=== PATIENT | male | born 1985 | race Caucasian/White ===

== ENCOUNTER 2018-03-29 22:57 | Inpatient (IN) | payer MEDICAID ==
[~2018-03-29] VITALS: Ht 172.7 cm; Wt 112.9 kg
[2018-03-29] MEDS ORDERED: LORazepam 2 MG TABLET PO PRN (23:15)
[2018-03-29] MEDS ORDERED: HALOPERIDOL 5 MG TABLET PO PRN (23:15)
[2018-03-29] MEDS ORDERED: ZOLPIDEM TARTRATE 10 MG TABLET PO PRN (23:15)
[2018-03-29 23:34] VITALS: BP 134/76
[2018-03-30 00:42] VITALS: BP 139/89
[2018-03-30] MEDS ORDERED: PETROLATUM,WHITE 71 GM JELLY TP PRN (05:30)
[2018-03-30] MEDS ORDERED: CloNIDine HCL 0.1 MG TABLET PO PRN (05:30)
[2018-03-30] MEDS ORDERED: IBUPROFEN 400 MG TABLET PO PRN (05:30)
[2018-03-30] MEDS ORDERED: ALBUTEROL SULFATE HFA 90 MCG/PUFF 8 GM INHALER IH PRN (05:30)
[2018-03-30] MEDS ORDERED: LOPERAMIDE HCL 2 MG CAPSULE PO PRN (05:30)
[2018-03-30] MEDS ORDERED: DOCUSATE SODIUM 100 MG CAPSULE PO PRN (05:30)
[2018-03-30] MEDS ORDERED: PERMETHRIN 5% 60 GM CREAM TP ONE (05:30)
[2018-03-30] MEDS ORDERED: ACETAMINOPHEN 325 MG TABLET PO PRN (05:30)
[2018-03-30] MEDS ORDERED: MAGNESIUM HYDROXIDE SUSPENSION 30 ML UDCUP PO PRN (05:30)
[2018-03-30] MEDS ORDERED: ONDANSETRON HCL 4 MG TABLET PO PRN (05:30)
[2018-03-30] MEDS ORDERED: GuaiFENesin/D-METHORPHAN [SUGAR-FREE] 200-20MG/10 ML SYRUP UDCUP PO PRN (05:30)
[2018-03-30] MEDS ORDERED: MAG HYDROX/AL HYDROX/SIMETH ES 30 ML SUSPENSION UDCUP PO PRN (05:30)
[2018-03-30 08:17] VITALS: BP 123/70
[2018-03-30 09:29] LABS: ALANINE AMINOTRANSFERASE 110 U/L (12-78); ALBUMIN 3.1 g/dL (3.4-5.0); ALKALINE PHOSPHATASE 88 U/L (46-116); ANION GAP 6 mmol/L (8-16); ASPARTATE AMINOTRANSFERASE 181 U/L (15-37); BILIRUBIN,TOTAL 0.7 mg/dL (0.1-1.0); CALCIUM, TOTAL 8.1 mg/dL (8.8-10.5); CARBON DIOXIDE 28 mmol/L (22-29); CHLORIDE 101 mmol/L (98-107); CHOL/HDL RATIO 4.3 (4.2-7.3); CHOLESTEROL 155 mg/dL (131-200); FREE T4 (FREE THYROXINE) 1.32 ng/dL (0.76-1.46); GLOMERULAR FILTR. RATE CALC > 60 mL/min (>60); GLUCOSE,RANDOM 86 mg/dL (70-110); HDL CHOLESTEROL 36 mg/dL (40-60); LDL CHOL (CALC.) 100 mg/dL (0-130); POTASSIUM 3.3 mmol/L (3.5-5.1); SODIUM SERUM 135 mmol/L (136-145); THYROID STIMULATING HORMONE 1.16 uIU/mL (0.36-3.74); TOTAL PROTEIN, SERUM 6.7 g/dL (6.4-8.2); TRIGLYCERIDES 97 mg/dL (15-150)
[2018-03-30 09:34] LABS: UREA NITROGEN, BLOOD 15 mg/dL (7-18)
[2018-03-30] MEDS: NICOTINE 21 MG/24 HOUR PATCH TD SCH (09:39)
[2018-03-30 09:40] LABS: BASOPHILS % (AUTO) 0.4 % (0.0-2.0); EOSINOPHILS % (AUTO) 3.3 % (1.0-6.0); HEMATOCRIT 42.6 % (41-53); HEMOGLOBIN 14.6 g/dL (13.5-17.5); LYMPHOCYTES % (AUTO) 19.1 % (22.0-44.0); MEAN CORPUSCULAR HEMOGLOBIN 31.3 pg (26.0-34.0); MEAN CORPUSCULAR HGB CONC 34.4 G/dL (31.0-37.0); MEAN CORPUSCULAR VOLUME 91 fL (80-100); MONOCYTES # (AUTO) 0.4 K/uL (0.1-1.0); MONOCYTES % (AUTO) 8.7 % (2.0-9.0); NEUTROPHILS # (AUTO) 3.5 K/uL (1.8-7.7); NEUTROPHILS % (AUTO) 68.5 % (40.0-70.0); PLATELET COUNT (AUTO) 198 K/uL (150-450); RED BLOOD CELL COUNT(AUTO) 4.66 MIL/uL (4.50-5.90); RED CELL DISTRIBUTION WIDTH 14.8 % (11.5-14.5)
[2018-03-30 09:55] LABS: HEMOGLOBIN A1C 5.4 % (4.5-6.2)
[2018-03-30] MEDS ORDERED: POTASSIUM CHLORIDE 20 MEQ ER TABLET PO ONE (12:45)
[2018-03-30] MEDS: OLANZapine 10 MG TABLET PO SCH (16:09)
[2018-03-30] MEDS: CEPHALEXIN MONOHYDRATE 500 MG CAPSULE PO SCH ×2 (17:04→20:59)
[2018-03-30 17:49] VITALS: BP 116/83
[2018-03-31 02:43] VITALS: BP 120/81
[2018-03-31 08:17] VITALS: BP 130/59
[2018-03-31 08:51] LABS: HEMOGLOBIN A1C 5.3 % (4.5-6.2)
[2018-03-31] MEDS: FLUoxetine HCL 20 MG CAPSULE PO SCH (09:14)
[2018-03-31] MEDS: NICOTINE 21 MG/24 HOUR PATCH TD SCH (09:15)
[2018-03-31] MEDS: OLANZapine 10 MG TABLET PO SCH ×2 (09:15→16:10)
[2018-03-31] MEDS: CEPHALEXIN MONOHYDRATE 500 MG CAPSULE PO SCH ×4 (09:15→20:23)
[2018-03-31 09:23] LABS: ALANINE AMINOTRANSFERASE 96 U/L (12-78); ALBUMIN 2.9 g/dL (3.4-5.0); ALKALINE PHOSPHATASE 90 U/L (46-116); ANION GAP 5 mmol/L (8-16); ASPARTATE AMINOTRANSFERASE 95 U/L (15-37); BILIRUBIN,TOTAL 0.4 mg/dL (0.1-1.0); CALCIUM, TOTAL 8.7 mg/dL (8.8-10.5); CARBON DIOXIDE 29 mmol/L (22-29); CHLORIDE 104 mmol/L (98-107); CHOL/HDL RATIO 5.2 (4.2-7.3); CHOLESTEROL 167 mg/dL (131-200); FREE T4 (FREE THYROXINE) 1.21 ng/dL (0.76-1.46); GLOMERULAR FILTR. RATE CALC > 60 mL/min (>60); GLUCOSE,RANDOM 99 mg/dL (70-110); HDL CHOLESTEROL 32 mg/dL (40-60); LDL CHOL (CALC.) 110 mg/dL (0-130); POTASSIUM 4.1 mmol/L (3.5-5.1); SODIUM SERUM 138 mmol/L (136-145); THYROID STIMULATING HORMONE 1.03 uIU/mL (0.36-3.74); TOTAL PROTEIN, SERUM 6.6 g/dL (6.4-8.2); TRIGLYCERIDES 126 mg/dL (15-150); UREA NITROGEN, BLOOD 14 mg/dL (7-18)
[2018-03-31 09:37] LABS: BASOPHILS % (AUTO) 0.9 % (0.0-2.0); EOSINOPHILS % (AUTO) 5.9 % (1.0-6.0); HEMATOCRIT 42.9 % (41-53); HEMOGLOBIN 14.8 g/dL (13.5-17.5); LYMPHOCYTES # (AUTO) 1.1 K/uL (1.0-4.8); MEAN CORPUSCULAR HEMOGLOBIN 31.4 pg (26.0-34.0); MEAN CORPUSCULAR HGB CONC 34.5 G/dL (31.0-37.0); MEAN CORPUSCULAR VOLUME 91 fL (80-100); MONOCYTES # (AUTO) 0.4 K/uL (0.1-1.0); MONOCYTES % (AUTO) 9.1 % (2.0-9.0); NEUTROPHILS # (AUTO) 2.4 K/uL (1.8-7.7); NEUTROPHILS % (AUTO) 57.1 % (40.0-70.0); PLATELET COUNT (AUTO) 208 K/uL (150-450); RED BLOOD CELL COUNT(AUTO) 4.72 MIL/uL (4.50-5.90); RED CELL DISTRIBUTION WIDTH 14.8 % (11.5-14.5)
[2018-03-31 16:14] VITALS: BP 101/60
[2018-04-01 05:06] VITALS: BP 110/68
[2018-04-01] MEDS: NICOTINE 21 MG/24 HOUR PATCH TD SCH (09:00)
[2018-04-01 09:02] VITALS: BP 139/71
[2018-04-01] MEDS: CEPHALEXIN MONOHYDRATE 500 MG CAPSULE PO SCH ×4 (09:14→20:15)
[2018-04-01] MEDS: FLUoxetine HCL 20 MG CAPSULE PO SCH (09:14)
[2018-04-01] MEDS: OLANZapine 10 MG TABLET PO SCH ×2 (09:14→16:16)
[2018-04-01 16:40] VITALS: BP 116/86
[2018-04-02 03:28] VITALS: BP 120/81
[2018-04-02] MEDS: FLUoxetine HCL 20 MG CAPSULE PO SCH (08:02)
[2018-04-02] MEDS: CEPHALEXIN MONOHYDRATE 500 MG CAPSULE PO SCH ×4 (08:04→20:31)
[2018-04-02 08:05] VITALS: BP 114/71
[2018-04-02] MEDS: OLANZapine 10 MG TABLET PO SCH (09:29)
[2018-04-02] MEDS: NICOTINE 21 MG/24 HOUR PATCH TD SCH (09:29)
[2018-04-02 16:34] VITALS: BP 116/61
[2018-04-02] MEDS: OLANZapine 7.5 MG TABLET PO SCH (16:45)
[2018-04-03 05:05] VITALS: BP 120/81
[2018-04-03 08:29] VITALS: BP 107/72
[2018-04-03] MEDS: OLANZapine 7.5 MG TABLET PO SCH (08:43)
[2018-04-03] MEDS: NICOTINE 21 MG/24 HOUR PATCH TD SCH (08:44)
[2018-04-03] MEDS: FLUoxetine HCL 20 MG CAPSULE PO SCH (09:04)
[2018-04-03] MEDS: CEPHALEXIN MONOHYDRATE 500 MG CAPSULE PO SCH ×2 (09:04→12:18)
[2018-04-03] MEDS ORDERED: CEPH500 PO (12:50)
[2018-04-03] MEDS ORDERED: OLAN15TA2 PO (12:50)
[2018-04-03] MEDS ORDERED: FLUO-191 PO (12:50)
[2018-04-04] MEDS ORDERED: FLUoxetine HCL 20 MG CAPSULE PO SCH (09:00)
== END 2018-04-03 14:05 | disposition home or self-care (01) | DRG 751 ==
LOC: B2S 23:14 → EDSTATUS 23:24 → B2S 03-30 00:08
PROVIDERS: ADMIT Psychiatry & Neurology Child & Adolescent Psychiatry; ATTEND Psychiatry & Neurology Child & Adolescent Psychiatry
DX: F33.2 Major depressive disorder, recurrent severe without psychotic features (principal); R45.851 Suicidal ideations; E66.01 Morbid (severe) obesity due to excess calories; F10.10 Alcohol abuse, uncomplicated; I10 Essential (primary) hypertension; F41.9 Anxiety disorder, unspecified; G47.00 Insomnia, unspecified; F19.10 Other psychoactive substance abuse, uncomplicated; Z59.0 Homelessness; Z71.41 Alcohol abuse counseling and surveillance of alcoholic; Z71.51 Drug abuse counseling and surveillance of drug abuser; Z68.37 Body mass index [BMI] 37.0-37.9, adult
CPT/HCPCS: 83036; 84439; 84443; 90686; 93970